=== PATIENT | male | born 1990 | race Caucasian/White ===

== ENCOUNTER → 2016-12-08 | Outpatient (CLI) | payer OTHER ==
[~2016-12-08] MED LIST: D-AMPHETAMINE; LAMICTAL 25MG T25 MG PO; RANITIDINE HYD300 MG PO; XANAX .25M0.25 MG/TA PO; ZOLOFT100 MG PO
== END ==
LOC: BHSO 14:44
DX: F41.1 Generalized anxiety disorder (principal)

== ENCOUNTER → 2017-01-21 | Outpatient (CLI) | payer OTHER | LOC: BHSO 14:09 | DX: F31.81 Bipolar II disorder (principal) ==

== ENCOUNTER → 2017-03-17 | Outpatient (CLI) | payer OTHER | LOC: BHSO 14:08 | DX: F41.1 Generalized anxiety disorder (principal) ==

== ENCOUNTER → 2017-09-15 | Outpatient (CLI) | payer OTHER | LOC: BHSO 11:12 | DX: F31.73 Bipolar disorder, in partial remission, most recent episode manic (principal) ==

== ENCOUNTER → 2017-11-10 | Outpatient (CLI) | payer OTHER | LOC: BHSO 11:40 | DX: F41.1 Generalized anxiety disorder (principal) | CPT/HCPCS: G0463 ==